=== PATIENT | male | born 1965 | race African-American/Black ===

== ENCOUNTER → 2016-10-26 | Outpatient (CLI) | payer OTHER ==
--- NOTE | ~2016-10-26 | US113 ---
[facility] A Service of [facility] & [facility] RADIOLOGY TEXT RESULTS PATIENT: KEITH DUNCAN LOCATION: [facility] : 63 UNIT #: [id number] AGE: [address]: CLARIBEL SIDHU APR SEX: M ORDER DR: [id number] [facility] [address] [place], [place] [address] [id number] O MR#: [id number] Acc #: [id number] NAME: KEITH DUNCAN : 1965 SEX: M STUDY DATE/TIME: 10/26/2016 13:53 UNIT: [facility] ROOM: STUDY DESCRIPTION: US Scrotal Duplex Complete Attending Physician: Claribel Sidhu Aprn Referring Physician: Claribel Sidhu Aprn Ordering Physician: Claribel Sidhu Aprn Primary Care Physician: No Primary Care Physician MEDICAL IMAGING REPORT This report is preliminary unless electronic signature is present EXAM Testicular ultrasound with color flow Doppler, 10/26/16. HISTORY Left scrotal swelling for 3 months with no known injury. FINDINGS Chow-scale images of the scrotum were obtained as well as Doppler waveform, spectral analysis and color flow Doppler imaging. The right testicle measured 3.4 cm x 4.5 cm x 2.2 cm while the left testicle measured 3.6 cm x 4 cm x 2 cm. 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 The testes are otherwise homogeneous in echotexture and demonstrate no cystic or solid mass lesions. Color-flow Doppler images show normal blood flow to both testes. The epididymi are normal. Large complicated left hydrocele is noted containing debris. IMPRESSION 1. The testes are normal bilaterally. No testicular mass is seen. Color-flow Doppler images show normal blood flow to both testes. 2. Large left hydrocele. Dictated by... Néstor Wilkins M.D. THIS IS AN ELECTRONICALLY VERIFIED REPORT Néstor Wilkins M.D. at 10/27/2016 8:29 AM YIN/tiana TD: 10/26/2016 19:04 JOB #: [id number] [facility] A Service of [facility] RADIOLOGY TEXT RESULTS PATIENT: KEITH DUNCAN LOCATION: [facility] : 63 UNIT #: [id number] AGE: [address]: CLARIBEL SIDHU APR SEX: M ORDER DR: MEDICAL IMAGING REPORT Page 1 of 1 COPY
== END | disposition home or self-care (01) ==
LOC: CGUS 13:30
DX: N50.9 Disorder of male genital organs, unspecified (principal); N43.3 Hydrocele, unspecified
CPT/HCPCS: 93975